=== PATIENT | female | born 1940 | race Caucasian/White ===

== ENCOUNTER 2018-05-23 11:09 | Emergency (ER) | payer MEDICARE, BC ==
[2018-05-23 11:46] VITALS: BP 102/54
--- NOTE | 2018-05-23 12:15 | UC ---
Throat Pain/Nasal Arthur HPI - HPI Summary HPI Summary: 78-year-old female presents with one-day history of nasal congestion, clear nasal drainage, postnasal drip, sore throat, swollen lymph nodes, chest congestion, and occasional non-productive cough. She has positive sick contact with spouse who has similar symptoms and was seen at this facility 3 days ago and diagnosed with a viral URI. Denies fever, chills, ear pain or drainage, chest pain, shortness of breath, abdominal pain, nausea, or vomiting. - History of Current Complaint Chief Complaint: UCGeneralIllness Stated Complaint: SORE THROAT Time Seen by Provider: 05/23/18 11:52 Hx Obtained From: Patient Onset/Duration: Gradual Onset, Lasting Days - 1 Pain Intensity: 8 Associated Signs & Symptoms: Positive: Hoarseness, Nasal Discharge. Negative: Dysphagia, Wheezing, Fever, Vomiting, Rash - Allergies/Home Medications Allergies/Adverse Reactions: Allergies Allergy/AdvReac Type Severity Reaction Status Date / Time MS Codeine [Codeine] Allergy Unknown Verified 07/23/15 23:29 Reaction Details IV contrast Allergy Unknown Uncoded 07/23/15 23:29 Reaction Details PMH/Surg Hx/FS Hx/Imm Hx Previously Healthy: Yes - denies significant past medical history - Surgical History Surgical History: Yes Surgery Procedure, Year, and Place: CHOLECYSTECTOMY 2012 - Family History Family History: Noncontributory - Social History Occupation: Retired Lives: With Family Alcohol Use: None Substance Use Type: None Smoking Status (MU): Never Smoked Tobacco Review of Systems Constitutional: Negative Skin: Negative Eyes: Negative ENT: Sore Throat, Nasal Discharge, Sinus Congestion Respiratory: Cough Cardiovascular: Negative Gastrointestinal: Negative Is Patient Immunocompromised?: No All Other Systems Reviewed And Are Negative: Yes Physical Exam Triage Information Reviewed: Yes Appearance: Well-Appearing, No Pain Distress, Well-Nourished Vital Signs: Initial Vital Signs Temp 98 F 05/23/18 11:44 Pulse 73 05/23/18 11:44 Resp 16 05/23/18 11:44 BP 102/54 05/23/18 11:44 Pulse Ox 100 05/23/18 11:44 Vital Signs Reviewed: Yes Eyes: Positive: Conjunctiva Clear. Negative: Discharge ENT: Positive: Pharyngeal erythema - Mild with postnasal drip, Nasal congestion , Nasal drainage - Clear, TMs normal, Hoarse voice, Uvula midline. Negative: Tonsillar swelling, Tonsillar exudate, Trismus, Muffled voice, Sinus tenderness Neck: Positive: Supple, Enlarged Nodes @ - Left anterior cervical with mild tenderness Respiratory: Positive: Lungs clear, Normal breath sounds, No respiratory distress Cardiovascular: Positive: RRR, No Murmur Neurological: Positive: Alert Skin Exam: Normal Throat Pain/Nasal Course/Dx - Course Course Of Treatment: 78-year-old female with one day history of URI symptoms and sore throat. Exam unremarkable except for some nasal congestion, mild pharyngeal erythema with postnasal drip, and anterior cervical lymphadenopathy. Rapid strep negative. Symptoms likely viral. Recommend symptomatic treatment with follow-up with primary care provider in 7 days if no improvement in symptoms. - Differential Dx/Diagnosis Differential Diagnosis/HQI/PQRI: Pharyngitis, Tonsillitis, URI Provider Diagnoses: Viral pharyngitis, URI Discharge - Sign-Out/Discharge Documenting (check all that apply): Patient Departure All imaging exams completed and their final reports reviewed: No Studies - Discharge Plan Condition: Stable Disposition: HOME Patient Education Materials: Pharyngitis (ED), Upper Respiratory Infection (ED) Referrals: No Primary Care Phys,NOPCP [Primary Care Provider] - Additional Instructions: The rapid strep test performed in the clinic today was negative. Your symptoms are likely from a vital infection. Viral infection typically run their course over 7-10 days. Use salt water gargles several times a day for the sore throat. Take [id number] acetaminophen (Tylenol) or ibuprofen (Advil, Motrin) according to directions as needed for aches pains and fever. Denies use an [id number]-[id number] decongestant such as Sudafed to help with the nasal congestion. Sure to drink plenty of fluids to stay well hydrated. Follow-up with your primary care provider in one week if symptoms persist. Seek immediate medical attention if you have a persistent fever greater than 100.5 F despite taking acetaminophen or ibuprofen, you are unable to swallow, have any chest pain, shortness of breath, persistent vomiting, or any worsening of symptoms. - Billing Disposition and Condition Condition: STABLE Disposition: Home
== END 2018-05-23 12:40 | disposition home or self-care (01) ==
LOC: UCEAST 11:09
DX: J06.9 Acute upper respiratory infection, unspecified (principal); J02.8 Acute pharyngitis due to other specified organisms; Z88.5 Allergy status to narcotic agent; Z91.041 Radiographic dye allergy status
CPT/HCPCS: 87651; 99211; G0463